=== PATIENT | male | born 1980 | race Caucasian/White ===

== ENCOUNTER → 2017-05-22 | Outpatient (CLI) | payer OTHER | LOC: COL.PUL 08:00 | DX: R06.02 Shortness of breath (principal); Z87.891 Personal history of nicotine dependence ==

== ENCOUNTER → 2017-05-23 | Outpatient (CLI) | payer OTHER | LOC: MHCPAIN 08:37 | DX: G89.29 Other chronic pain (principal); M47.817 Spondylosis without myelopathy or radiculopathy, lumbosacral region | CPT/HCPCS: G0463 ==

== ENCOUNTER → 2017-07-21 | Outpatient (CLI) | payer OTHER | LOC: COL.PUL 09:59 | DX: R06.02 Shortness of breath (principal); Z87.891 Personal history of nicotine dependence | CPT/HCPCS: J7674 ==